=== PATIENT | male | born 1960 ===

== ENCOUNTER 2020-10-21 09:39 | Day surgery (SDC) | payer BC ==
[2020-10-18 15:55] VITALS: BMI 29.5
[2020-10-21] MEDS ORDERED: BUPIVACAINE LIPOSOME/PF (EXPAREL) 266 MG/20 ML VIAL ONE (11:09)
[2020-10-21] MEDS ORDERED: MIDAZOLAM HCL 2 MG/2 ML SINGLE DOSE VIAL ONE (11:09)
[2020-10-21] MEDS ORDERED: fentaNYL CITRATE 250 MCG/5 ML VIAL ONE (12:13)
[2020-10-21] MEDS ORDERED: PROPOFOL 20 ML ONE (12:14)
[2020-10-21] MEDS ORDERED: ceFAZolin SODIUM 1 GM VIAL ONE (12:39)
[2020-10-21] MEDS ORDERED: DEXAMETHASONE SOD PHOSPHATE 4 MG/1 ML VIAL ONE (13:18)
[2020-10-21] MEDS ORDERED: ONDANSETRON 4 MG/2 ML VIAL ONE (13:18)
[2020-10-21] MEDS ORDERED: oxyCODONE HCL 5 MG TABLET PO PRN (13:53)
[2020-10-21] MEDS ORDERED: ONDANSETRON 4 MG/2 ML VIAL IVPUSH PRN (13:53)
[2020-10-21] MEDS ORDERED: IBUPROFEN 800 MG/8 ML IJ IVPB PRN (13:53)
[2020-10-21] MEDS ORDERED: LACTATED RINGERS SOLUTION 1,000 ML IV SCH (14:00)
[2020-10-21 15:17] VITALS: TEMP 97.2
[2020-10-21] MEDS ORDERED: IBUPROFEN 400 MG TABLET (FP) PO ONE (16:38)
[2020-10-21 17:14] VITALS: BP 135/75; PULSE 70
== END 2020-10-21 18:30 | disposition home or self-care (01) ==
LOC: EDBD → FASU 09:39
PROVIDERS: ATTEND Orthopaedic Surgery
PROC: 0SBD4ZZ Excision of Left Knee Joint, Percutaneous Endoscopic Approach (ICD-10-PCS; 2020-10-21)
PROC: 0LMM0ZZ Reattachment of Left Upper Leg Tendon, Open Approach (ICD-10-PCS; 2020-10-21)
PROC: 0SBD4ZZ Excision of Left Knee Joint, Percutaneous Endoscopic Approach (ICD-10-PCS; principal; 2020-10-21 12:54)
PROC: 0SBD4ZZ Excision of Left Knee Joint, Percutaneous Endoscopic Approach (ICD-10-PCS; 2020-10-21 12:54)
DX: S83.242A Other tear of medial meniscus, current injury, left knee, initial encounter (principal); S83.282A Other tear of lateral meniscus, current injury, left knee, initial encounter; M65.862 Other synovitis and tenosynovitis, left lower leg; S83.8X2A Sprain of other specified parts of left knee, initial encounter; S76.112A Strain of left quadriceps muscle, fascia and tendon, initial encounter; X58.XXXA Exposure to other specified factors, initial encounter; Y92.9 Unspecified place or not applicable; Y93.9 Activity, unspecified
CPT/HCPCS: 94760